=== PATIENT | female | born 1965 | race Caucasian/White ===

== ENCOUNTER 2016-05-10 18:40 | Emergency (ER) | payer MEDICAID, OTHER ==
[~2016-05-10] VITALS: Ht 152.4 cm; Wt 78.0 kg
[~2016-05-10 18:40] MED LIST: CIPR500T4 PO; IBUP-1542 PO
[2016-05-10 19:01] VITALS: Ht 152.4 cm; Wt 78.0 kg
[2016-05-10] MEDS ORDERED: ONDANSETRON (ODT) 4 MG TAB ODT STA (19:21)
[2016-05-10] MEDS ORDERED: morphine 10 MG INJ IM ONE (19:30)
--- NOTE | 2016-05-10 19:41 | ERD ---
ER Documentation Chief Complaint Date/Time DATE: 05/10/16 TIME: 19:36 Chief Complaint RT LEG PAIN WITH NUMBNESS AND BACK PAIN SINCE THIS MORNING HPI 51-year-old female sent here in the emergency department for complaints of lower back pain radiating to the left lower leg started this morning, patient was working, was doing housecleaning, started to have the pain, described the pain as sharp pain, succession scale, radiates from the left lower back to the left lower extremity, accompanied with numbness and tingling. Patient is able to walk on the left leg. Patient denies any incontinence. Patient denies hematuria or dysuria. Patient denies any fever or chills. Patient denies any nausea or vomiting. Patient did not take any medications to help with symptoms. ROS All systems reviewed and are negative except as per history of present illness. Medications Home Meds Active Scripts Ibuprofen* (Motrin*) 600 Mg Tab, 600 MG PO Q6, #20 TAB Prov:MARCIA MORENO MD 11/17/14 Ciprofloxacin Hcl* (Ciprofloxacin Hcl*) 500 Mg Tablet, 500 MG PO BID for 7 Days , TAB Prov:MARCIA MORENO MD 11/17/14 Allergies Allergies: Coded Allergies: No Known Allergy (Unverified , 11/17/14) PMhx/Soc Medical and Surgical Hx: pt denies Medical Hx, pt denies Surgical Hx Hx Alcohol Use: No Hx Substance Use: No Hx Tobacco Use: No Smoking Status: Never smoker FmHx Family History: No coronary disease, No diabetes, No other Physical Exam Vitals Vital Signs Date Time Temp Pulse Resp B/P Pulse Ox O2 Delivery O2 Flow Rate FiO2 05/10/16 19:01 98.5 74 20 119/68 100 Physical Exam GENERAL: The patient is well developed and appropriate for usual state of health, in no apparent distress. CHEST: Clear to auscultation bilaterally. There are no rales, wheezes or rhonchi. HEART: Regular rate and rhythm. No murmurs, clicks, rubs or gallops. No S3 or S4. ABDOMEN: Soft, nontender and nondistended. Good bowel sounds. No rebound or guarding. No gross peritonitis. No gross organomegaly or masses. No Summers sign or McBurney point tenderness. BACK: No midline or flank tenderness. + left straight leg test. EXTREMITIES: Equal pulses bilaterally. There is no peripheral clubbing, cyanosis or edema. No focal swelling or erythema. Full range of motion. Grossly neurovascularly intact. NEURO: Alert and oriented. Cranial nerves 2-12 intact. Motor strength in all 4 extremities with 5/5 strength. Sensation grossly intact. Normal speech and gait. SKIN: There is no apparent rash or petechia. The skin is warm and dry. HEMATOLOGIC AND LYMPHATIC: There is no evidence of excessive bruising or lymphedema. No gross cervical, axillary, or inguinal lymphadenopathy. Results 24 hrs Laboratory Tests Test 05/10/16 20:12 Bedside Urine pH (LAB) 6.5 Bedside Urine Protein (LAB) Negative Bedside Urine Glucose (UA) Negative Bedside Urine Ketones (LAB) 1+ Bedside Urine Blood 1+ Bedside Urine Nitrite (LAB) Negative Bedside Urine Leukocyte Esterase (L 1+ Current Medications Medications (Trade) Dose Ordered Sig/Loretta Route PRN Reason Start Time Stop Time Status Last Admin Dose Admin Morphine Sulfate (morphine) 6 mg ONCE ONCE IM 05/10/16 19:30 05/10/16 19:31 DC 05/10/16 20:24 Ondansetron HCl (Zofran Odt) 4 mg ONCE STAT ODT 05/10/16 19:21 05/10/16 19:23 DC 05/10/16 20:23 Patient was given medication for pain here in emergency department, after treatment, patient verbalized feeling much better. Patient's pain is improved. Zofran given to prevent vomiting. PROCEDURE: CT Lumbar Spine. CLINICAL INDICATION: Back pain TECHNIQUE: Continuous axial CT images were obtained. Sagittal and coronal reformations were created from the raw axial data. The images were reviewed on a PACS workstation. The calculated radiation dose measures 627 mGy centimeters. The CTDI measures 25 mGy COMPARISON: none FINDINGS: There is normal alignment of the lumbar spine. There is no evidence of subluxation. There is a minimal thoracolumbar dextrocurvature. Vertebral body heights are preserved. Intervertebral disk spaces are maintained. No focal lytic or sclerotic lesions are identified. T12-L1: There is no visualized gross disc abnormality. No bony central or neural foraminal stenosis is identified. L1-L2: There is no visualized gross disc abnormality. No bony central or neural foraminal stenosis is identified. L2-L3: There is no visualized gross disc abnormality. No bony central or neural foraminal stenosis is identified. L3-L4: There is a minimal diffuse disk bulge. There is no significant facet hypertrophy. There is no central canal stenosis. There is no neural foraminal stenosis.. L4-L5: There is a minimal diffuse disk bulge. There is mild bilateral facet hypertrophy. There is no bony central canal stenosis. There is no bony foraminal stenosis.. L5-S1: There is a minimal diffuse disk bulge. There is mild bilateral facet hypertrophy. There is a small chronic-appearing bony fragment adjacent to the left L5-S1 facet joint. There is no bony central canal stenosis. There is no bony foraminal stenosis.. There is no abnormal paravertebral soft tissue mass. There are bilateral scattered 2 mm nonobstructing renal stones. There are mildly prominent aortic lymph nodes, up to 16 x 11 mm. IMPRESSION: 1. Minimal appearing disk bulges at L3-L4 through L5-S1. Mild appearing facet hypertrophy L4-5 and L5-S1. 2. Mild thoracolumbar dextro curvature. 3. No bony central canal stenosis. No significant bony foraminal stenosis. No visualized fracture or dislocation.. 4. Scattered bilateral 2 mm nonobstructing renal stones. No hydronephrosis. RPTAT: HBST .Bandar Regalado MD, MD Date Time Electronically viewed and signed by .Bandar Regalado MD, MD on 05/10/2016 20:37 .T/ Procedures/MDM Medical Decision Making: Patient's pain is most likely consistent with a back pain caused by muscle strain, also can be from sciatica from degenerative disc disease. There is no suspicion for neurovascular compromise. Patient has intact sensation and circulation of the affected extremity. There is low suspicion for septic arthritis. Patient does not have any fever. Radiology exams of the affected area does not show any fracture or dislocation. Patient also has urinary tract infection but no symptoms of pyelonephritis. Patient has kidney stones but no hydronephrosis, no obstructing stones noted. No suspicion for septic stone, patient is not febrile. Disposition: Home. Patient is given prescription for ibuprofen for moderate pain , [place] for pain, Flexeril, Keflex. Patient was advised to avoid heavy lifting, rest. Patient was advised that if symptoms are worse, numbness, tingling, high fever, unable to move joint, worsening symptoms, to return to emergency department immediately. Otherwise, patient is advised to follow up with the primary care doctor in 5-7 days for reevaluation of symptoms. Departure Diagnosis: Primary Impression: Back pain Back pain location: low back pain Chronicity: acute Back pain laterality: left Sciatica presence: with sciatica Sciatica laterality: sciatica of left side Qualified Code: M54.42 - Acute left-sided low back pain with left-sided sciatica Additional Impressions: UTI (urinary tract infection) Urinary tract infection type: acute cystitis Hematuria presence: without hematuria Qualified Code: N30.00 - Acute cystitis without hematuria Kidney stone Degenerative disc disease Spinal region: lumbosacral Qualified Code: M51.37 - Degeneration of intervertebral disc of lumbosacral region Condition: Stable Patient Instructions: Back Pain W/ Sciatica, Degenerative Disk Disease, Kidney Stone, Undescended (No Symptoms), Understanding Urinary Tract Infections (UTIs) Additional Instructions: Patient is given prescription for ibuprofen for moderate pain, [place] for pain, Flexeril, Keflex. Patient was advised to avoid heavy lifting, rest. Patient was advised that if symptoms are worse, numbness, tingling, high fever, unable to move joint, worsening symptoms, to return to emergency department immediately. Otherwise, patient is advised to follow up with the primary care doctor in 5-7 days for reevaluation of symptoms. YASSINE WOOTEN NP May 10, 2016 19:41
[2016-05-10 20:13] LABS: URINE BLOOD (Dip) POC 1+ (NEGATIVE)
--- NOTE | 2016-05-10 20:37 | RADRPT ---
PROCEDURE: CT Lumbar Spine. CLINICAL INDICATION: Back pain TECHNIQUE: Continuous axial CT images were obtained. Sagittal and coronal reformations were creat ed from the raw axial data. The images were reviewed on a PACS workstation. The calculated radiatio n dose measures 627 mGy centimeters. The CTDI measures 25 mGy COMPARISON: none FINDINGS: There is normal alignment of the lumbar spine. There is no evidence of subluxation. There is a minim al thoracolumbar dextrocurvature. Vertebral body heights are preserved. Intervertebral disk spaces are maintained. No focal lytic or sclerotic lesions are identified. T12-L1: There is no visualized gross disc abnormality. No bony central or neural foraminal stenosis is identified. L1-L2: There is no visualized gross disc abnormality. No bony central or neural foraminal stenosis is identified. L2-L3: There is no visualized gross disc abnormality. No bony central or neural foraminal stenosis is identified. L3-L4: There is a minimal diffuse disk bulge. There is no significant facet hypertrophy. There is no central canal stenosis. There is no neural foraminal stenosis.. L4-L5: There is a minimal diffuse disk bulge. There is mild bilateral facet hypertrophy. There is no bony central canal stenosis. There is no bony foraminal stenosis.. L5-S1: There is a minimal diffuse disk bulge. There is mild bilateral facet hypertrophy. There is a small chronic-appearing bony fragment adjacent to the left L5-S1 facet joint. There is no bony cent ral canal stenosis. There is no bony foraminal stenosis.. There is no abnormal paravertebral soft tissue mass. There are bilateral scattered 2 mm nonobstruct ing renal stones. There are mildly prominent aortic lymph nodes, up to 16 x 11 mm. IMPRESSION: 1. Minimal appearing disk bulges at L3-L4 through L5-S1. Mild appearing facet hypertrophy L4-5 and L5-S1. 2. Mild thoracolumbar dextro curvature. 3. No bony central canal stenosis. No significant bony foraminal stenosis. No visualized fracture or dislocation.. 4. Scattered bilateral 2 mm nonobstructing renal stones. No hydronephrosis. RPTAT: HBST .Bandar Regalado MD, Date Time Electronically viewed and signed by .Bandar Regalado MD, MD on 05/10/2016 20:37 .T/
[2016-05-10] MEDS ORDERED: CYCL-319 PO (20:55)
[2016-05-10] MEDS ORDERED: CEPH-443 PO (20:55)
[2016-05-10] MEDS ORDERED: PHEN-538 PO (20:55)
[2016-05-10] MEDS ORDERED: HYDR-902 PO (20:55)
[2016-05-10] MEDS ORDERED: IBUP-1542 PO (20:55)
[2016-05-10 21:20] VITALS: BP 115/65; PULSE 85; RESP 18; TEMP 98.9
== END 2016-05-10 21:17 | disposition home or self-care (01) ==
LOC: FTE 18:40
DX: M54.42 Lumbago with sciatica, left side (principal); N30.00 Acute cystitis without hematuria; N20.0 Calculus of kidney; M51.37 Other intervertebral disc degeneration, lumbosacral region
CPT/HCPCS: 72131; 81003; 96372; J2270; Z7502; Z7610

== ENCOUNTER 2017-09-03 15:17 | Emergency (ER) | END 2017-09-03 17:16 | disposition home or self-care (01) ==